=== PATIENT | male | born 1985 | race Asian ===

== ENCOUNTER 2017-11-07 14:05 | Emergency (ER) | payer OTHER ==
[2017-11-07] MEDS: HYDROCODONE/APAP (5/325) TAB PO (14:32)
[2017-11-07] MEDS: LIDOCAINE 1% (MDV) 10 ML INJ INFIL (15:05)
[2017-11-07] MEDS: DIPHTH/TET/ACEL PERTUSS (ADULT) 0.5 ML VIAL IM* (16:04)
== END 2017-11-07 16:09 | disposition home or self-care (01) ==
LOC: E/R 14:05
DX: S63.282A Dislocation of proximal interphalangeal joint of right middle finger, initial encounter (principal); S61.212A Laceration without foreign body of right middle finger without damage to nail, initial encounter; W21.09XA Struck by other hit or thrown ball, initial encounter; Y92.328 Other athletic field as the place of occurrence of the external cause
CPT/HCPCS: 12001; 73140; 90471; 90715; 99284-25